=== PATIENT | male | born 1990 | race Caucasian/White ===

== ENCOUNTER 2018-04-18 01:21 | Observation (INO) | payer OTHER, SELFPAY ==
[2018-04-18] VITALS (20 sets, daily range): BP systolic 74–107; BP diastolic 41–69; PULSE 74–133; RESP 16–33; TEMP 36.4–39.4; O2SAT 90–99; BMI 22.6; BMI 23.2
[2018-04-18] MEDS: 0.9% Normal Saline 1,000 ML 1000 ML IV ×2 (01:49→02:35)
[2018-04-18] MEDS: Acetaminophen 500 MG Tablet 1000 MG PO (01:49)
[2018-04-18 02:10] LABS: Absolute Lymphocyte Count 0.87 X10^3/ul (0.83-4.51); Absolute Neutrophil Count 14.9 X10^3/uL (2.0-7.7); Basophil# 0.01 X10^3/uL; Basophil% 0.1 % (0-1); Eosinophil# 0.03 X10^3/uL; Eosinophils% 0.2 % (0-5); Hematocrit 41.3 % (40-54); Hemoglobin 14.3 g/dl (13.0-16.5); Lymphocyte # 0.87 X10^3/ul (4.0); Lymphocyte % 5.4 % (19-41); Mean Corp Hgb Conc 34.6 g/gl (32-36); Mean Corpuscular Volume 86.6 fL (80-94); Mean Platelet Vol. 10.5 fl (6.2-12.0); Monocyte# 0.23 X10^3/uL; Monocyte% 1.4 % (0-10); Neutrophil # 14.94 X10^3/uL (2.7-7.7); Neutrophil % 92.7 % (47-70); Platelet Count 247 K/mm3 (150-450); RBC Distribution Width CV 13.1 % (11.6-14.6); RBC Distribution Width SD 41.9 fl (35.1-43.9); Red Blood Count 4.77 M/mm3 (4.6-6.2); White Blood Count 16.1 K/mm3 (4.4-11.0)
[2018-04-18 02:11] LABS: Differential Indicated SCAN CRITERIA MET; POSITIVE COUNT NO; POSITIVE DIFFERENTIAL NO; POSITIVE MORPHOLOGY YES
[2018-04-18 02:18] LABS: AST(SGOT) 34 U/L (15-37); Alanine Aminotransfer ALT/SGPT 70 U/L (16-61); Albumin, Serum 2.7 g/dL (3.2-5.0); Alkaline Phosphatase 257 U/L (45-117); Anion Gap 10 (5-15); BUN 16 mg/dL (7-18); BUN/Creat Ratio 10.3 RATIO (10-20); Calcium,Total 8.7 mg/dL (8.5-10.1); Chloride 99 mmol/L (98-107); Creatinine, Serum 1.56 mg/dL (0.70-1.30); EST Glomerular Filtration Rate 57 mL/min (>60); Est Glom Filt Rate - Afr Amer 68 mL/min (>60); Estimated Creatinine Clearance 56.74 ml/min; Glucose 139 mg/dL (74-106); Potassium 3.7 mmol/L (3.5-5.1); Protein, Total 7.7 g/dL (6.4-8.2); Sodium Level 133 mmol/L (136-145)
[2018-04-18 02:30] LABS: Differential Comment SCANNED
--- NOTE | 2018-04-18 02:32 | ED.VISSUMM ---
- ER Visit Summary Date of Service: 04/18/18 Chief Complaint: Fever and cough History of Present Illness: The patient is a 27 M past medical history of colitis for the last several months. He primarily lives in [place]. His parents live here in [place]. He is being treated in [place] for colitis that was diagnosed after colonoscopy. Currently he is on oral steroids. In the last week he started getting a cough and fever. He states the cough is nonproductive. He was feeling dehydrated. And they decided to bring him in today to be evaluated. He has upcoming appointment with a gastroenterology group in [place] to be further evaluated for his colitis. He has had diarrhea for approximately 3 months. Physical Examination: Young male febrile 101.3. Pulse ox 96% on room air. No hypoxia. Blood pressure 107/67 heart rate of 131. Clinically looks dehydrated. H EENT exam dry mucous membranes. Otherwise unremarkable. Neck nontender no lymphadenopathy. Lungs clear to auscultation bilaterally. Dry cough. No rales or rhonchi. No wheezing. Heart tachycardic no murmur. Abdomen soft nontender. Normal bowel sounds no peritoneal signs. Nondistended. Moving all 4 extremities. Calves nontender without edema or cords. Skin no rashes. Back exam unremarkable. Neurologically is awake and alert with no focal motor deficits. Test Results: CBC showed an elevated white count of 16.1. Currently he is on steroids. Hemoglobin of 14. Electrolytes unremarkable. Creatinine 1.56. Anion gap of 10. Sodium 133. Liver enzymes showed alkaline phosphatase elevated to 57. Chest x-ray 2 views read by myself and the radiologist shows no acute abnormality. No pneumonia. Emergency Department Course and Treatment: Patient treated with Tylenol for fever. 2 L normal saline. Patient remained hypotensive and was given a third and eventually 1/4 L of normal saline. His fever is resolving with p.o. Tylenol and IV Toradol. Standing his blood pressure systolically is in the 70s. However he is able to ambulate. In spite of a large amount of IV fluids he is received he is really had very minimal urination but has had 3 episodes of diarrhea while in the emergency department. Treatment Plan: Admission for further IV fluids. Disposition: Admission Impression: Acute cough and fever secondary to viral URI (bronchitis) History of 3 months of diarrhea secondary to colitis Dehydration with orthostatic hypotension This note was generated with Dragon dictation software. It may contain incorrect words, spelling, and punctuation that were not noted in review of the chart prior to signing ED Disposition - Plan for ED Patient: Chief Complaint: Cough Referrals: Town [facility],Out of [Primary Care Provider] -
[2018-04-18] MEDS: 0.9% Normal Saline 1,000 ML 999 ML IV ×2 (02:43→03:46)
[2018-04-18] MEDS: Ketorolac 30 MG/ML Syringe IV (02:43)
--- NOTE | 2018-04-18 06:20 | PCM.HP.STD ---
Problem List (1) Ulcerative colitis Status: Acute (2) LISS (acute kidney injury) Status: Acute (3) Hyponatremia Status: Acute (4) Bronchitis Status: Acute History of Present Illness Date of Admission: 04/18/18 Chief Complaint: Diarrhea The patient is a 27 year old male w/ h/o UC admitted for hypotension. He has been diagnosis with UC several months ago and has been on mesalamine 1.2 gm PO TID. He was placed on uceris 9mg PO Qday on Wednesday given persistent diarrhea. He would have multiple episodes of diarrhea. Diarrhea is nonbloody. He also has been coughing x 1 week. Cough in nonproductive. Frequency and intensity of cough have increased. His father brought him up from [place], [place] because he had persistent diarrhea without improvement. While in the ED, he had 4L of IVF but his SBP was in the 90s. Past Medical History Allergies No Known Allergies Allergy (Verified 04/18/18 01:33) Home Medications: Ambulatory Orders Medication Instructions Recorded Mesalamine [Lialda] 1.2 gm PO TID 04/18/18 Uceris 9 mg PO DAILY 04/18/18 Psychiatric History: No pertinent psych hx Lives: With Family Smoking Status: Never smoker Alcohol: None Drugs: None - *Family History Maternal History Items: No pertinent history Review of Systems Constitutional: Reports: Fever. Denies: Chills, Weight Change HEENT: Denies: Head Aches, Sinus Congestion, Sinus Drainage Cardiovascular: Denies: Chest Pain, Palpitations Respiratory: Reports: Cough. Denies: Shortness of breath at rest, Sputum production Gastrointestinal: Denies: Abdominal Pain, Nausea, Vomiting Genitourinary: Denies: Dysuria Musculoskeletal: Denies: Joint Pain, Joint Tenderness Skin: Denies: Rash, Wounds Neurological: Denies: Numbness, Tingling, Focal weakness Psychiatric: Denies: Anxiety, Depression, Homicidal Ideations, Suicidal Ideations Hematologic/ Lymphatic: Denies: Easy Bruising, Easy Bleeding VTE Information - Inpt Only VTE Present on Admission: No VTE Mechan Device Prophylaxis: SCD's VTE Pharm Prophylaxis ordered?: Yes Patient Problems: Active and Suspected Problems Ulcerative colitis (Acute) LISS (acute kidney injury) (Acute) Hyponatremia (Acute) Bronchitis (Acute) - Physical Exam General: Alert, Oriented x3, Cooperative HEENT: Atraumatic, PERRLA, EOMI, Normocephalic Neck: Supple, No JVD, Negative Carotid Bruits Lungs: Clear to auscultation, Normal air movement Cardiovascular: Regular rate, No murmurs Abdomen: Bowel Sounds Present, Soft, Non Tender Extremities: No edema, Capillary Refill Less than 3 Seconds Skin: No rashes, No breakdown Musculoskeletal: No Tenderness to Palpation of Joints or Extremities Neurological: Cranial nerves II-XII grossly intact Psych/Mental Status: Normal Affect, Appropriate Vital Signs Temp Pulse Resp BP Pulse Ox 99.4 F H 107 H 22 H 93/49 L 95 04/18/18 03:45 04/18/18 05:25 04/18/18 05:25 04/18/18 05:25 04/18/18 05:25 Assessment/Plan All Active Problems Ulcerative colitis (Acute) LISS (acute kidney injury) (Acute) Hyponatremia (Acute) Bronchitis (Acute) 27 year old male w/ h/o UC admitted for hypotension. 1) Hypotension: Likely secondary to hypovolemia secondary to diarrhea. Aggressive fluid resuscitation. Blood and stool cultures. 2) LISS: Most likely secondary to azotemia, ie perfusion mediated. IVF fluid hydration. Avoid nephrotoxic drugs, ie NSAID. Monitor. 3) Hypovolemia hyponatremia: Aggressive fluid hydration. Monitor. 4) UC flare: Will hold both mesalamine and uceris. Will start solumedrol 60mg IV Qday. Stool and blood cultures, including C. diff pending. No suspicion of bacteremia at this time. Pt is tolerating diet. Resume diet. 5) Bronchitis: Flu pending. Chest xray unremarkable. Monitor. 6) Prophylaxis: Lovenox / protonix.
[2018-04-18] MEDS: 0.9% Normal Saline 1,000 ML 150 ML IV ×3 (07:51→20:44)
[2018-04-18] MEDS: guaiFENesin/Codeine 5 ML UDC PO ×2 (08:19→17:16)
[2018-04-18] MEDS: Acetaminophen 325 MG Tablet 650 MG PO ×2 (09:00→20:05)
[2018-04-18] MEDS: MethylPREDNISolone 125 MG/2 ML Vial 60 MG IV ×2 (10:41→17:09)
[2018-04-18] MEDS: Pantoprazole Sodium 40 MG Tablet PO (10:41)
[2018-04-18] MEDS: Enoxaparin 40 MG/0.4 ML Syringe SC (10:41)
[2018-04-18] MEDS: 0.9% NaCl Peripheral Flush Adult/Peds IV ×2 (10:52→17:11)
--- NOTE | 2018-04-18 11:54 | PCM.PN.HOSP ---
Patient Problems: Active and Suspected Problems Ulcerative colitis (Acute) LISS (acute kidney injury) (Acute) Hyponatremia (Acute) Bronchitis (Acute) Subjective: still with diarrhea. some abd bloating--unchanged. + cough. Vitals/I&O's: Vital Signs Temp Pulse Resp BP Pulse Ox 37.4 C H 120 H 16 91/53 L 93 04/18/18 11:06 04/18/18 11:06 04/18/18 11:06 04/18/18 11:06 04/18/18 11:06 Oxygen Delivery Method Room Air Weight: 59.477 kg Body Mass Index (BMI) 23.2 General: Alert, - - listless. afebrile. HEENT: Atraumatic, Normocephalic, - - no icterus. Oral: Moist Mucosa, No Gingival or Mucosal Lesions/ Ulcerations Neck: No Nodes, Thyroid Normal Size and Texture Lungs: Clear to auscultation, Normal air movement, No rhonchi, No wheeze Cardiovascular: Normal S1, Normal S2, No murmurs, Tachycardic Abdomen: Bowel Sounds Present, Soft, Non Tender, Hyperactive Bowel Sounds, Distended Extremities: No edema, No Calf Tenderness Skin: No rashes, No breakdown Musculoskeletal: No Tenderness to Palpation of Joints or Extremities, No Muscle Wasting Neurological: Neuro grossly intact, Sensory exam intact to light touch and pain, Coordination normal Psych/Mental Status: Appropriate, Flat Affect Microbiology Past 72 Hours 04/18/18 06:25 Stool Enteric Bacteriology - Final 04/18/18 07:29 Mucosa - Nasopharyngeal Influenza Types A,B Direct FA (JONH) - Final 04/18/18 06:25 Stool Stool Lactoferrin - Final Current Medications Acetaminophen (Tylenol) 650 mg PO Q4H PRN PRN PRN Reason: pain/fever Last Admin: 04/18/18 09:00 Dose: 650 mg Enoxaparin Sodium (Lovenox) 40 mg SC DAILY [facility] Last Admin: 04/18/18 10:41 Dose: 40 mg Guaifenesin/Codeine Phosphate (Robitussin Ac) 5 ml PO Q6H PRN PRN PRN Reason: COUGH Last Admin: 04/18/18 08:19 Dose: 5 ml Sodium Chloride () 1,000 mls @ 150 mls/hr IV .Q6H40M [facility] Last Admin: 04/18/18 07:51 Dose: 150 mls/hr Magnesium Hydroxide (Milk Of Magnesia) 30 ml PO DAILY PRN PRN PRN Reason: Constipation Mesalamine (Lialda) 3.6 gm PO DAILY [facility] Methylprednisolone (Solu-Medrol) 60 mg IV DAILY [facility] Last Admin: 04/18/18 10:41 Dose: 60 mg Nutritional Formula (Lactose Free) (Ensure Enlive) 120 ml PO 4X/DAY [facility] Last Admin: 04/18/18 10:48 Dose: 120 ml Pantoprazole Sodium (Protonix) 40 mg PO DAILY [facility] Last Admin: 04/18/18 10:41 Dose: 40 mg Sodium Chloride () 5 - 30 ml IV UD PRN PRN Reason: SALINE FLUSH Last Admin: 04/18/18 10:52 Dose: 10 ml Medical Necessity - Tobacco Use Smoking Status: Never smoker Assessment/Plan All Active Problems Ulcerative colitis (Acute) LISS (acute kidney injury) (Acute) Hyponatremia (Acute) Bronchitis (Acute) 1. SIRS present on arrival suspect d/t UC flare, but will need to r/o infectious etiology CXR negative check BCx check UA and UCx 2. UC flare reviewed CT results from 02/19 that was negative given ongoing symptoms, will need to r/o infectious etiology check Cdiff check CT a/p start empiric abx increase steroids to q6 resume lialda hold budesonide + fecal leuks 3. LISS suspect prerenal given ongoing diarrhea IVF follow up labs 4. DVT proph: LMWH. DW patient's mother. Code Visit Inpatient E&M: 91889 Subs Hosp L3
[2018-04-19] VITALS (9 sets, daily range): BP systolic 105–120; BP diastolic 60–79; PULSE 77–112; RESP 16–20; TEMP 36.3–37.1; O2SAT 96–98
[2018-04-19] MEDS: MethylPREDNISolone 125 MG/2 ML Vial 60 MG IV ×4 (00:02→17:31)
[2018-04-19] MEDS: guaiFENesin/Codeine 5 ML UDC PO ×4 (00:11→19:00)
[2018-04-19 01:37] LABS: Color, Urine Straw (Yellow); Glucose, Dipstick Normal (Normal); Ketone-Dipstick Negative (Negative); Leukocyte Esterase-Dipstick 25 /ul (Negative); Nitrite-Dipstick Negative (Negative); Occult Blood-Urine Negative /ul (Negative); Protein-Dipstick Negative (Negative); Specific Gravity, Urine 1.005 (1.002-1.030); Urine Bilirubin Dipstick Negative (Negative); Urine Clarity Sl. Cloudy (Clear); Urine Urobilinogen Normal (Normal)
[2018-04-19] MEDS: 0.9% Normal Saline 1,000 ML 150 ML IV (02:50)
[2018-04-19 05:51] LABS: Absolute Neutrophil Count 11.2 X10^3/uL (2.0-7.7); Hematocrit 34.6 % (40-54); Hemoglobin 11.6 g/dl (13.0-16.5); Lymphocyte % 7.2 % (19-41); Mean Corp Hgb Conc 33.5 g/gl (32-36); Mean Corpuscular Hgb 29.4 pg (27.0-32.0); Mean Corpuscular Volume 87.8 fL (80-94); Mean Platelet Vol. 9.9 fl (6.2-12.0); Monocyte# 0.39 X10^3/uL; Monocyte% 3.1 % (0-10); Neutrophil # 11.19 X10^3/uL (2.7-7.7); Neutrophil % 89.5 % (47-70); Platelet Count 194 K/mm3 (150-450); RBC Distribution Width CV 13.5 % (11.6-14.6); RBC Distribution Width SD 43.4 fl (35.1-43.9); Red Blood Count 3.94 M/mm3 (4.6-6.2); White Blood Count 12.5 K/mm3 (4.4-11.0)
[2018-04-19 06:01] LABS: Differential Indicated SCAN CRITERIA MET; POSITIVE COUNT NO; POSITIVE DIFFERENTIAL NO; POSITIVE MORPHOLOGY YES
[2018-04-19 06:09] LABS: Anion Gap 10 (5-15); BUN 14 mg/dL (7-18); Calcium,Total 8.2 mg/dL (8.5-10.1); Chloride 111 mmol/L (98-107); EST Glomerular Filtration Rate 94 mL/min (>60); Est Glom Filt Rate - Afr Amer 114 mL/min (>60); Estimated Creatinine Clearance 88.51 ml/min; Glucose 198 mg/dL (74-106); Potassium 3.8 mmol/L (3.5-5.1); Sodium Level 143 mmol/L (136-145)
[2018-04-19] MEDS: Acetaminophen 325 MG Tablet 650 MG PO ×2 (06:46→19:00)
[2018-04-19 06:50] LABS: Differential Comment SCANNED
--- NOTE | 2018-04-19 09:02 | PCM.PN.HOSP ---
Patient Problems: Active and Suspected Problems Ulcerative colitis (Acute) LISS (acute kidney injury) (Acute) Hyponatremia (Acute) Bronchitis (Acute) Subjective: Patient was seen and examined. No new complains. Denies fever, chills, SOB, chest pain. Has had one episode of diarrhea today Vitals/I&O's: Vital Signs Temp Pulse Resp BP Pulse Ox 97.6 F L 77 20 H 105/60 96 04/19/18 02:45 04/19/18 02:54 04/19/18 02:45 04/19/18 02:45 04/19/18 02:45 Oxygen Delivery Method Room Air Weight: 59.477 kg Body Mass Index (BMI) 23.2 Intake and Output for Last 24 Hours 04/17/18 04/18/18 04/19/18 23:59 23:59 23:59 Intake Total 3522 / 3522 1059 / 1059 Output Total 2575 / 2575 600 / 600 Balance 947 / 947 459 / 459 General: Alert, Oriented x3, Cooperative, No apparent distress HEENT: Atraumatic, PERRLA, EOMI, Normocephalic Oral: Moist Mucosa Neck: Supple Lungs: Clear to auscultation, Normal air movement Cardiovascular: Regular rate, Regular Rhythm, Normal S1, Normal S2, No murmurs Abdomen: Bowel Sounds Present, Soft, Non Tender, Non-Distended, No Hepato-splenomegaly Extremities: No edema Skin: No rashes, No breakdown Musculoskeletal: No Tenderness to Palpation of Joints or Extremities Lymphatic: No Cervical, Supraclavicular, or Inguinal Adenopathy Neurological: Cranial nerves II-XII grossly intact, Neuro grossly intact Psych/Mental Status: Normal Affect, Appropriate Microbiology Past 72 Hours 04/18/18 06:25 Stool C. difficile DNA Amplification - Final 04/18/18 06:25 Stool Enteric Bacteriology - Final 04/18/18 07:29 Mucosa - Nasopharyngeal Influenza Types A,B Direct FA (JONH) - Final 04/18/18 06:25 Stool Stool Lactoferrin - Final Laboratory Results 04/18/18 15:00: Urine Color Straw, Urine Clarity Sl. Cloudy, Urine pH 7.0, Ur Specific [place] 1.005, Urine Protein Negative, Urine Glucose (UA) Normal, Urine Ketones Negative, Urine Occult Blood Negative, Urine Nitrite Negative, Urine Bilirubin Negative, Urine Urobilinogen Normal, Ur Leukocyte Esterase 25 H 04/19/18 05:20: Sodium 143, Potassium 3.8, Chloride 111 H, Carbon Dioxide 22.0, Anion Gap 10, BUN 14, Creatinine 1.00, Estim Creat Clear Calc 88.51, Est GFR (MDRD) Af Amer 114, Est GFR (MDRD) Non-Af 94, BUN/Creatinine Ratio 14.0, Glucose 198 H, Calcium 8.2 L 04/19/18 05:20: WBC 12.5 H, RBC 3.94 L, Hgb 11.6 L, Hct 34.6 L, MCV 87.8, MCH 29.4, MCHC 33.5, RDW 13.5, RDW Differential 43.4, Plt Count 194, MPV 9.9, Immature Gran % (Auto) 0.200, Neut % (Auto) 89.5 H, Lymph % (Auto) 7.2 L, [place] % (Auto) 3.1, Eos % (Auto) 0.0, Baso % (Auto) 0.0, Absolute Neuts (auto) 11.2 H, Absolute Lymphs (auto) 0.90, Total Counted Not Reportable, Differential Comment SCANNED Current Medications Acetaminophen (Tylenol) 650 mg PO Q4H PRN PRN PRN Reason: pain/fever Last Admin: 04/19/18 06:46 Dose: 650 mg Enoxaparin Sodium (Lovenox) 40 mg SC DAILY [facility] Last Admin: 04/18/18 10:41 Dose: 40 mg Guaifenesin/Codeine Phosphate (Robitussin Ac) 5 ml PO Q6H PRN PRN PRN Reason: COUGH Last Admin: 04/19/18 06:45 Dose: 5 ml Sodium Chloride () 1,000 mls @ 150 mls/hr IV .Q6H40M [facility] Last Admin: 04/19/18 02:50 Dose: 150 mls/hr Magnesium Hydroxide (Milk Of Magnesia) 30 ml PO DAILY PRN PRN PRN Reason: Constipation Mesalamine (Lialda) 3.6 gm PO DAILY [facility] Methylprednisolone (Solu-Medrol) 60 mg IV Q6 [facility] Last Admin: 04/19/18 06:35 Dose: 60 mg Nutritional Formula (Lactose Free) (Ensure Enlive) 120 ml PO 4X/DAY [facility] Last Admin: 04/18/18 20:44 Dose: 120 ml Pantoprazole Sodium (Protonix) 40 mg PO DAILY [facility] Last Admin: 04/18/18 10:41 Dose: 40 mg Sodium Chloride () 5 - 30 ml IV UD PRN PRN Reason: SALINE FLUSH Last Admin: 04/18/18 17:11 Dose: 10 ml Medical Necessity - Tobacco Use Smoking Status: Never smoker Assessment/Plan All Active Problems Ulcerative colitis (Acute) LISS (acute kidney injury) (Acute) Hyponatremia (Acute) Bronchitis (Acute) 27-year-old male with newly diagnosed ulcerative colitis, on mesalamine who comes in with complaints of worsening diarrhea and found to be in LISS. 1. Hypovolemic hypotension, resolved 2. LISS, secondary to dehydration from diarrhea, resolved with IV fluids, BMP in am. 3. Hypovolemic hyponatremia, resolved. 4. Ulcerative colitis flare, leucocytosis improved, on mesalamine, IV solumedrol q6, and has an outpatient appointment with GI 5. Acute bronchitis, influenza screen negative 6. DVT Ppx- Lovenox SC Code Visit Inpatient E&M: 89726 Subs Hosp L2
[2018-04-19] MEDS: Enoxaparin 40 MG/0.4 ML Syringe SC (09:55)
[2018-04-19] MEDS: Pantoprazole Sodium 40 MG Tablet PO (09:55)
[2018-04-19] MEDS: Mesalamine 1.2 GM Tablet 3.6 GM PO (09:55)
[2018-04-19] MEDS: 0.9% Normal Saline 1,000 ML 75 ML IV (09:57)
[2018-04-19] MEDS: 0.9% NaCl Peripheral Flush Adult/Peds IV ×2 (13:02→17:33)
[2018-04-20] MEDS: 0.9% Normal Saline 1,000 ML 75 ML IV (00:13)
[2018-04-20] MEDS: MethylPREDNISolone 125 MG/2 ML Vial 60 MG IV ×2 (00:18→06:27)
[2018-04-20] MEDS: 0.9% NaCl Peripheral Flush Adult/Peds IV ×2 (00:18→06:26)
[2018-04-20 02:00] VITALS: PULSE 72
[2018-04-20 03:50] VITALS: BP 106/70; PULSE 68; RESP 18; TEMP 36.9; O2SAT 98
[2018-04-20] MEDS: Acetaminophen 325 MG Tablet 650 MG PO (03:54)
[2018-04-20] MEDS: guaiFENesin/Codeine 5 ML UDC PO ×2 (03:55→10:30)
[2018-04-20 06:25] LABS: Absolute Lymphocyte Count 0.88 X10^3/ul (0.83-4.51); Absolute Neutrophil Count 15.3 X10^3/uL (2.0-7.7); Basophil# 0.01 X10^3/uL; Basophil% 0.1 % (0-1); Hematocrit 31.7 % (40-54); Hemoglobin 10.6 g/dl (13.0-16.5); Lymphocyte # 0.88 X10^3/ul (4.0); Lymphocyte % 5.3 % (19-41); Mean Corp Hgb Conc 33.4 g/gl (32-36); Mean Corpuscular Hgb 29.4 pg (27.0-32.0); Mean Corpuscular Volume 87.8 fL (80-94); Mean Platelet Vol. 10.3 fl (6.2-12.0); Monocyte# 0.47 X10^3/uL; Monocyte% 2.8 % (0-10); Neutrophil # 15.25 X10^3/uL (2.7-7.7); Neutrophil % 91.2 % (47-70); Platelet Count 251 K/mm3 (150-450); RBC Distribution Width CV 13.3 % (11.6-14.6); Red Blood Count 3.61 M/mm3 (4.6-6.2); White Blood Count 16.7 K/mm3 (4.4-11.0)
[2018-04-20 06:29] LABS: POSITIVE COUNT NO; POSITIVE DIFFERENTIAL NO; POSITIVE MORPHOLOGY NO
[2018-04-20 06:51] LABS: Anion Gap 12 (5-15); BUN 13 mg/dL (7-18); BUN/Creat Ratio 13.7 RATIO (10-20); Calcium,Total 8.2 mg/dL (8.5-10.1); Chloride 109 mmol/L (98-107); Creatinine, Serum 0.95 mg/dL (0.70-1.30); EST Glomerular Filtration Rate 100 mL/min (>60); Est Glom Filt Rate - Afr Amer 122 mL/min (>60); Estimated Creatinine Clearance 93.17 ml/min; Glucose 131 mg/dL (74-106); Potassium 3.5 mmol/L (3.5-5.1); Sodium Level 144 mmol/L (136-145)
[2018-04-20 08:14] VITALS: BP 115/74; PULSE 82; RESP 18; TEMP 36.6; O2SAT 94
[2018-04-20] MEDS: Mesalamine 1.2 GM Tablet 3.6 GM PO (08:31)
[2018-04-20 09:58] VITALS: PULSE 88
--- NOTE | 2018-04-20 10:04 | PCM.DC ---
- Discharge Diagnoses Current Active Problems: Current Active and Chronic Problems Ulcerative colitis (Acute) LISS (acute kidney injury) (Acute) Hyponatremia (Acute) Bronchitis (Acute) Reason(s) for Visit for Discharge Instructions: Diarrhea You will use the following diet at home:: Regular Your food should be the consistency of: Regular Your liquids should be the consistency of: Regular/Thin Discharge Activity: Return to Normal Activity Additional Instructions: Please take all your medications as prescribed. Continue to hydrate yourself. Follow-up with the benzene still utility operator as scheduled today at 4pm. Allergies/Adverse Reactions: Allergies No Known Allergies Allergy (Verified 04/18/18 01:33) Medications to take at Discharge Mesalamine [Lialda] 3 tab PO DAILY 04/18/18 Prednisone 40 mg PO DAILY #14 tab 04/20/18 The following prescriptions were given: Prednisone 40 mg PO DAILY #14 tab Please follow up with your Primary Care Physician in: within 2 weeks of discharge Test Results: Test results from this visit will be discussed in further detail at your follow-up appointment, if applicable. When: Follow-up with benzene still utility operator today Proposed Discharge Date: 04/20/18
--- NOTE | 2018-04-20 10:16 | PCM.DC.SUM ---
Discharge Date and Diagnosis Date of Admission: 04/18/18 Date of Discharge: 04/20/18 - Primary Discharge Diagnosis Active and Suspected Problems Ulcerative colitis (Acute) LISS (acute kidney injury) (Acute) Hyponatremia (Acute) Bronchitis (Acute) Hospital Course and Treatment Imaging Results: Clinical Impression(s) from Imaging Studies Chest X-Ray 04/18/18 01:44 IMPRESSION: Normal x-ray examination of the chest. Electronically Signed: Eric Flores MD at 2:13 EDT , Service support , Abdomen/Pelvis CT 04/18/18 12:01 IMPRESSION: Suspected mild acute colitis of the descending colon. Small ascites in the deep pelvis. Mild hepatosplenomegaly. Minimal right effusion. Patchy airspace opacities at the lung bases bilaterally may merely reflect atelectasis, but correlate clinically for any symptoms of mild acute pneumonitis. There is minimal induration in the lower anterior abdominal wall and flank subcutaneous fat. Mild 3rd spacing of fluids? Electronically Signed: Yonatan Pate at 15:56 EDT Tel , Service support , None Operations: None Procedures: None Summary of Care Provided: 27-year-old male with newly diagnosed ulcerative colitis, on mesalamine who comes in with complaints of worsening diarrhea, hypotension and found to be in LISS. 1. Hypovolemic hypotension, resolved 2. LISS, secondary to dehydration from diarrhea, resolved with IV fluids. 3. Hypovolemic hyponatremia, resolved. 4. Ulcerative colitis flare, leucocytosis improved, on mesalamine, managed on IV solumedrol, discharged on po prednisone. Patient had GI appointment on day of discharge. 5. Acute bronchitis, influenza screen negative, managed symptomatically Discharge Diet: No Restrictions Discharge Activity: Return to Normal Activity Home Medications: Medications to take at Discharge Mesalamine [Lialda] 3 tab PO DAILY 04/18/18 Prednisone 40 mg PO DAILY #14 tab 04/20/18 Following Prescrptions Were Given to Patient: Prednisone 40 mg PO DAILY #14 tab Disposition: Home Minutes spent on discharge:: 40 Patient Condition:: Stable Medical Necessity - Tobacco Use Smoking Status: Never smoker Meaningful Use Info Meaningful Use Diagnoses (Choose all that apply): None applicable Code Visit Inpatient E&M: 68884 Disch Hosp
[2018-04-20] MEDS: Pantoprazole Sodium 40 MG Tablet PO (10:31)
== END 2018-04-20 11:00 | disposition home or self-care (01) | DRG 386 ==
LOC: ED 01:58 → MS3 06:18 → ED 04-19 10:01 → MS3 04-19 10:18
PROVIDERS: Admitting Provider Internal Medicine; Emergency Provider Emergency Medicine; Visit Provider Internal Medicine
DX: K51.90 Ulcerative colitis, unspecified, without complications (principal); N17.9 Acute kidney failure, unspecified; E87.1 Hypo-osmolality and hyponatremia; I95.9 Hypotension, unspecified; E86.0 Dehydration; J20.9 Acute bronchitis, unspecified
CPT/HCPCS: 36415; 71046; 74177; 80048; 80076; 81002; 83630; 85025; 87040; 87086; 87493; 87506; 87804; 97802; 99218; 99283; J7030; Q9967; A4216; G0378